=== PATIENT | female | born 1955 | race Caucasian/White ===

== ENCOUNTER → 2016-09-07 | Day surgery (SDC) | payer BC ==
--- NOTE | 2016-09-06 08:10 | MH ---
cc: GAIL COHEN M.D. DATE OF ADMISSION 09/07/2016 CHIEF COMPLAINT Sinusitis HISTORY This is a 60-year-old female with chronic sinusitis, nasal obstruction. The patient has had multiple infections and has not responded to medical therapy. Positive CT scan for chronic sinusitis. She is to undergo bilateral endoscopic sinusotomies with balloon Sinuplasty, bilateral submucosal resection of the inferior turbinates. PAST MEDICAL HISTORY 1. She has ALLERGY TO PENICILLIN AND SENSITIVITY TO PREDNISONE. 2. Laryngeal reflux 3. Chronic otitis MEDICATIONS Medications include: 1. Fluconazole 2. Jardiance 3. Metronidazole 4. Synthroid PHYSICAL EXAM This is a well-developed, well-nourished female in no apparent distress. HEAD, EYES, EARS, NOSE, AND THROAT: Normocephalic, atraumatic. Extraocular motions intact. External ear canals clear. Lips, oral mucosa and oropharynx show no lesion. The nasal exam confirms septal deviation and turbinate hypertrophy. No polypoid disease. CHEST: The chest is clear to auscultation. HEART: Regular rate. ABDOMEN: Soft. EXTREMITIES: No lesion. NEUROLOGIC: Exam is nonfocal. ASSESSMENT This is a 60-year-old female with chronic sinusitis, nasal obstruction. She has failed medical therapy. She is to undergo bilateral endoscopic sinusotomies, bilateral submucosal resection of the inferior turbinates. The risks and benefits discussed with the patient. The risks include, but are not limited to those of anesthesia, bleeding, unfavorable scarring, CSF leak, meningitis, brain abscess, double vision, vision loss, blindness anosmia, septal perforation, epistaxis. The patient states she understands and accepts the risks of procedure. MD ABIGAIL Boss/PASCUAL /7:38 AM /8:05 AM
[~2016-09-07] VITALS: Ht 162.6 cm; Wt 104.9 kg
[~2016-09-07] MED LIST: ACETA500 PO; ACETAMINOPHEN/HYDROcodone 325 MG/5 MG TAB PO PRN; ALLO300T2 PO; CHLORHEXIDINE GLUCONATE 2 % 1 PACK (2 CLOTHS) TOPICAL PRN; DO NOT ADM ANY ANTICOAGULANT DRUGS PRN; DORZ2SOL7 EACH EYE; DULA10IN SQ; EPINEPHrine HCL (1:1000) 1 MG/ML VIAL OTHER ONE; FOSI40TA PO; GEMF600T PO; HUMALOG SQ; INSU1INJ14 SQ; INSULIN HUMAN REGULAR 1,000 UNITS/10 ML VIAL SQ PRN; LACTATED RINGER'S 1000 ML IV PRN; LEVO.2 PO; LIDOCAINE 1%/EPINEPHrine 1:200,000 PF SOLN 30 ML VIAL INFIL ONE; METF1000 PO; METOPROLOL TARTRATE 25 MG TAB PO PRN; MORPHINE SULFATE 4 MG/ML INJ IV PRN; MORPHINE SULFATE 4 MG/ML INJ ONE; OMEP20TA PO; ONDANSETRON HCL 4 MG/2 ML VIAL IV PUSH ONE; ONDANSETRON HCL 4 MG/2 ML VIAL IV PUSH PRN; POVIDONE IODINE 5% (ANTISEPSIS KIT) 4 APPLICATIONS EACH NARE PRN; PROPOFOL 200 MG/20 ML AMP IV ONE; SODIUM CHLORID 0.9% 500 ML IV PRN; ZOCO20TA PO; fentaNYL CITRATE 250 MCG/5 ML AMP ONE
[2016-09-07 07:00] VITALS: BP 158/66; PULSE 74; RESP 16; TEMP 99.5; O2SAT 98
[2016-09-07 07:32] LABS: AUTOMATED NEUTROPHIL # 5.9 TH/MM3 (1.8-7.7); BASOPHIL # 0.1 TH/MM3 (0-0.2); BASOPHIL % 0.7 % (0.0-2.0); EOSINOPHIL # 0.3 TH/MM3 (0-0.4); HEMATOCRIT 39.8 % (35.0-46.0); HEMO FLAGS DIFF FINAL; LYMPHOCYTE # 3.6 TH/MM3 (1.0-4.8); MEAN CELL VOLUME 81.8 FL (80.0-100.0); MEAN CORPUSCULAR HEMOGLOBIN 26.9 PG (27.0-34.0); MEAN CORPUSCULAR HGB CONC 32.8 % (32.0-36.0); MONO % 5.9 % (0.0-8.0); NEUT % 56.4 % (16.0-70.0); PLATELET COUNT 233 TH/MM3 (150-450); RED BLOOD COUNT 4.86 MIL/MM3 (4.00-5.30); RED CELL DISTRIBUTION WIDTH 14.1 % (11.6-17.2); WHITE BLOOD COUNT 10.6 TH/MM3 (4.0-11.0)
--- NOTE | 2016-09-07 08:49 | EKG ---
Date Performed: 09/07/2016 Time Performed: 06:54:38 PTAGE: 60 years EKG: Sinus rhythm NONSPECIFIC T-WAVE ABNORMALITY BORDERLINE ECG NO PREVIOUS TRACING DOCTOR: Paresh Amezquita Interpretating Date/Time 09/07/2016 08:48:09
--- NOTE | 2016-09-07 09:15 | MP ---
cc: GAIL COHEN M.D. DATE OF SURGERY: 09/07/2016 DATE OF : 1955 CHIEF COMPLAINT Chronic sinusitis. INDICATIONS This is a 60-year-old female with a history of chronic sinusitis and nasal obstruction. She has not responded to medical therapy, has CT evidence of chronic disease. She is to undergo bilateral endoscopic sinusotomies. She also has nasal obstruction and turbinate hypertrophy and will undergo bilateral submucosal resection of inferior turbinates. PREOPERATIVE DIAGNOSIS 1. Chronic sinusitis. 2. Nasal obstruction. 3. Turbinate hypertrophy. POSTOPERATIVE DIAGNOSIS 1. Chronic sinusitis. 2. Nasal obstruction. 3. Turbinate hypertrophy. PROCEDURE 1. Bilateral endoscopic frontal sinusotomy. 2. Bilateral endoscopic maxillary sinusotomy. 3. Bilateral endoscopic sphenoid sinusotomy. 4. Bilateral submucosal resection of inferior turbinates. SUMMARY The patient was brought to the operating room and placed in the supine position, successfully placed under general anesthesia and prepared in the usual fashion for this procedure. The nose was first topically decongested and infiltrated with Xylocaine and epinephrine 1:100,000. Attention was turned to the left side. The left inferior turbinate was incised inferiorly. Submucous resection was completed. The area was cauterized and closed. Then the right inferior turbinate was incised inferiorly, submucous resection was completed. Again soft tissue was removed and bony areas preserved like on the other side. The mucosa was preserved and the area was cauterized and closed. Attention was turned to sinus surgery. The left frontal sinus was first treated. It was identified with balloon sinuplasty and then the frontal recess area was identified. Endoscopic sinusotomy was completed with dilation of the frontal recess on this side. Attention was turned to the maxillary sinus. The uncinate process was identified. The uncinate process was rotated laterally. The maxillary sinus was identified with a catheter and then with balloon dilation under endoscopic guidance maxillary sinusotomy was completed and open. The sphenoid was approached from a transnasal route. The sphenoid sinus ostium was identified and this was opened under endoscopic guidance completing sphenoid sinusotomy. On the right side in a similar fashion the frontal recess was identified and frontal sinusotomy was completed. Under endoscopic guidance with balloon dilation the maxillary sinus ostia was identified. The uncinate process was rotated. The maxillary sinus entered with a dilator and endoscopic sinusotomy completed. Next, attention was turned to the sphenoid. This was approached from a transnasal route. The sphenoid sinus ostia was identified and sphenoid sinusotomy completed. The patient tolerated the procedure well. She was suctioned. She was awakened and extubated, taken to Recovery in stable condition. MD ABIGAIL Boss/FELIX /8:45 AM 8:59 AM
[2016-09-07] MEDS: LABETALOL HCL 100 MG/20 ML VIAL IV ONE ×2 (09:50→10:56)
[2016-09-07 12:00] VITALS: BP 152/71; PULSE 65; RESP 18; TEMP 98.1; O2SAT 95
== END | disposition home or self-care (01) ==
LOC: HSDC 06:03
PROVIDERS: ATTEND Specialist
DX: J32.9 Chronic sinusitis, unspecified (principal); J34.3 Hypertrophy of nasal turbinates; I10 Essential (primary) hypertension; R94.31 Abnormal electrocardiogram [ECG] [EKG]; E11.9 Type 2 diabetes mellitus without complications
CPT/HCPCS: 00160; 30140; 31256; 31276; 31287; 85025; 93005; J0171; J1815; J2270; J2405; J3010; J7120